=== PATIENT | male | born 1950 | race Caucasian/White ===

== ENCOUNTER 2018-01-19 13:17 | Day surgery (SDC) | payer MEDICAID, MEDICARE ==
[2018-01-19] MEDS ORDERED: PROPOFOL 20 ML ×2 (16:03)
[2018-01-19] MEDS ORDERED: MIDAZOLAM 1 MG/ML 2 ML INJ ×2 (16:03)
[2018-01-19] MEDS ORDERED: FENTAnyl 50 MCG/ML VIAL ×2 (16:04)
[2018-01-19] MEDS ORDERED: LABETALOL HCL 20MG INJ ×2 (16:18)
[2018-01-19] MEDS ORDERED: ESMOLOL 0 ML ×2 (16:21)
== END 2018-01-19 17:10 | disposition home or self-care (01) ==
LOC: GIL 13:17
DX: R19.4 Change in bowel habit (principal); K29.60 Other gastritis without bleeding; K64.8 Other hemorrhoids; E11.9 Type 2 diabetes mellitus without complications; I10 Essential (primary) hypertension; I48.91 Unspecified atrial fibrillation; E78.5 Hyperlipidemia, unspecified; Z79.84 Long term (current) use of oral hypoglycemic drugs
CPT/HCPCS: 43239; 82962

== ENCOUNTER 2018-02-21 12:28 | Inpatient (IN) | payer MEDICARE, MEDICAID ==
[2018-02-21] MEDS: FAMOTIDINE 20 MG INJ IV (14:52)
[2018-02-21 15:02] LABS: ADD UMIC YES; UR ASCORBIC ACID NEGATIVE (NEGATIVE); UR BILIRUBIN (Dip) NEGATIVE (NEGATIVE); UR BLOOD (Dip) NEGATIVE (NEGATIVE); UR CLARITY CLEAR (CLEAR); UR COLOR STRAW (YELLOW); UR GLUCOSE (Dip) 2+ mg/dL (NEGATIVE); UR KETONES (Dip) NEGATIVE (NEGATIVE); UR LEUKOCYTE ESTERASE (Dip) NEGATIVE Leu/ul (NEGATIVE); UR NITRITE (Dip) NEGATIVE (NEGATIVE); UR RBC 0 /HPF (0-5); UR SPECIFIC GRAVITY (Dip) 1.009 (1.003-1.030); UR TOTAL PROTEIN (Dip) 2+ mg/dl (NEGATIVE); UR UROBILINOGEN (Dip) NEGATIVE (NEGATIVE); UR WBC 0 /HPF (0-5)
[2018-02-21 15:11] LABS: ADD MAN DIFF? NO
[2018-02-21 15:12] LABS: BASOPHILS % 0.5 % (0.0-2.0); EOSINOPHILS # 0.3 10^3/ul (0.0-0.5); EOSINOPHILS % 3.9 % (0.0-7.0); HEMATOCRIT 44.7 % (42.0-52.0); HEMOGLOBIN 15.5 g/dl (14.0-18.0); LYMPHOCYTES % 35.6 % (15.0-51.0); MEAN CORPUSCULAR HGB CONC 34.7 g/dl (32.0-37.0); MEAN CORPUSCULAR VOLUME 83.7 fl (82.0-101.0); MONOCYTE # 0.6 10^3/ul (0.3-0.9); MONOCYTES % 6.5 % (0.0-11.0); NEUTROPHIL # 4.5 10^3/ul (1.6-7.5); NEUTROPHILS % 53.3 % (39.0-77.0); PLATELET COUNT 256 10^3/UL (140-415); RED BLOOD COUNT 5.34 10^6/ul (4.70-6.10); RED CELL DISTRIBUTION WIDTH 13.4 % (11.5-14.5)
[2018-02-21 15:12] LABS: WHITE BLOOD COUNT 8.5 10^3/ul (4.8-10.8)
[2018-02-21 15:31] LABS: ALANINE AMINOTRANSFERASE 42 IU/L (13-69); ALBUMIN 4.1 g/dl (3.3-4.9); ALBUMIN/GLOBULIN RATIO 1.36; ALKALINE PHOSPHATASE 91 IU/L (42-121); ANION GAP 18 (8-16); ASPARTATE AMINO TRANSFERASE 33 IU/L (15-46); BILIRUBIN,INDIRECT 0.4 mg/dl (0-1.1); BILIRUBIN,TOTAL 0.4 mg/dl (0.2-1.3); BLOOD UREA NITROGEN 13 mg/dl (7-20); CALCIUM 9.2 mg/dl (8.4-10.2); CARBON DIOXIDE 23 mmol/L (21-31); CHLORIDE 107 mmol/L (97-110); CREATININE 0.79 mg/dl (0.61-1.24); GLUCOSE 199 mg/dl (70-220); LIPASE 106 U/L (23-300); POTASSIUM 3.9 mmol/L (3.5-5.1); SODIUM 144 mmol/L (135-144); TOTAL PROTEIN 7.1 g/dl (6.1-8.1)
[2018-02-21 15:42] LABS: TROPONIN-I 0.029 ng/ml (0.000-0.120)
[2018-02-21] MEDS: SOD CHLORIDE 0.9% 100 ML (16:37)
[2018-02-21] MEDS: IODIXANOL LOCM 100 ML BTL (16:38)
[2018-02-21] MEDS: HEPARIN 25000 UNITS/250 ML 250 ML IV (17:42)
[2018-02-21] MEDS: ASPIRIN 325 MG TAB PO (17:43)
[2018-02-21] MEDS: NITROGLYCERIN 2% 1 GM OINT PKT TD (17:54)
[2018-02-21] MEDS ORDERED: ACETAMINOPHEN 325 MG TAB PO ×2 (18:00→19:00)
[2018-02-21] MEDS ORDERED: NITROGLYCERIN (SL) 0.4 MG TAB SL (18:00)
[2018-02-21] MEDS ORDERED: LORAZEPAM 0.5 MG TAB PO (18:00)
[2018-02-21] MEDS ORDERED: ONDANSETRON 4 MG INJ IV ×2 (18:00→19:00)
[2018-02-21] MEDS ORDERED: morphine LIQ (10 MG/5 ML) CUP PO (18:00)
[2018-02-21] MEDS ORDERED: DOCUSATE SODIUM 100 MG CAP PO (18:00)
[2018-02-21] MEDS ORDERED: MAGNESIUM HYDROXIDE 30ML CUP PO (18:00)
[2018-02-21] MEDS ORDERED: METOPROLOL 5 MG INJ IV (18:00)
[2018-02-21] MEDS ORDERED: NACL 0.9% 3 ML SYG IV (18:00)
[2018-02-21 18:21] LABS: INR 0.97; PARTIAL THROMBOPLASTIN TIME 28.6 Sec (25.0-35.0)
[2018-02-21] MEDS: OMEGA 3 ACID ETHYL ESTERS XX (18:30)
[2018-02-21] MEDS: [UNRECOGNIZED DRUG - OTHER] XX (18:30)
[2018-02-21] MEDS: NICARDipine HCL 30 MG CAPSULE PO (18:34)
[2018-02-21] MEDS: hydrALAzine 20 MG INJ IV (18:35)
[2018-02-21] MEDS: HYPOGLYCEMIA PROTOCOL when Glucose is <70 mg/dL or symptomatic <90 mg/dL. XX (19:00)
[2018-02-21] MEDS ORDERED: GLUCOSE GEL 15 GRAM TUBE PO ×2 (19:00)
[2018-02-21] MEDS ORDERED: GLUCOSE GEL 15 GRAM TUBE BUCCAL (19:00)
[2018-02-21] MEDS ORDERED: GLUCAGON 1 MG INJ IM (19:00)
[2018-02-21] MEDS: Discontinue current oral sulfonylureas (glyburide, glipizide, and/or glimepiride) prior to XX (19:00)
[2018-02-21] MEDS ORDERED: DEXTROSE 50% 50 ML SYRINGE IV ×2 (19:00)
[2018-02-21 20:06] LABS: B-TYPE NATRIURETIC PEPTIDE 2600 PG/ML (0-125); HEMOGLOBIN A1C 7.4 % (0-5.9)
[2018-02-21] MEDS ORDERED: RANITIDINE 150 MG TAB PO (21:00)
[2018-02-21] MEDS ORDERED: METOPROLOL 25 MG TAB PO (21:00)
[2018-02-21] MEDS: INSULIN ASPART [NOVOLOG] 3 ML PEN SC (21:00)
[2018-02-21] MEDS ORDERED: HEPARIN 1000 UNITS/ML 10 ML INJ IV (21:30)
[2018-02-21] MEDS: FISH OIL 1,000 MG CAP PO (22:32)
[2018-02-21] MEDS: METOPROLOL 50 MG TAB PO (22:33)
[2018-02-21] MEDS: PANTOPRAZOLE (EC) 40 MG TAB PO (22:44)
[2018-02-21] MEDS: HEPARIN 25000 UNITS/D5W 250 ML IV (22:51)
[2018-02-22] MEDS: HEPARIN 1000 UNITS/ML 10 ML INJ IV (00:48)
[2018-02-22] MEDS: HEPARIN 25000 UNITS/D5W 250 ML IV ×3 (00:50→13:11)
[2018-02-22] MEDS: [UNRECOGNIZED DRUG - OTHER] XX ×3 (02:30→17:24)
[2018-02-22] MEDS: OMEGA 3 ACID ETHYL ESTERS XX ×3 (02:30→17:24)
[2018-02-22] MEDS: PANTOPRAZOLE (EC) 40 MG TAB PO ×2 (07:10→17:45)
[2018-02-22 07:38] LABS: ADD MAN DIFF? NO
[2018-02-22 07:45] LABS: WHITE BLOOD COUNT 11.8 10^3/ul (4.8-10.8)
[2018-02-22 07:45] LABS: BASOPHIL # 0.1 10^3/ul (0.0-0.1); BASOPHILS % 0.4 % (0.0-2.0); EOSINOPHILS # 0.5 10^3/ul (0.0-0.5); EOSINOPHILS % 4.1 % (0.0-7.0); HEMATOCRIT 45.4 % (42.0-52.0); HEMOGLOBIN 15.9 g/dl (14.0-18.0); LYMPHOCYTES # 4.4 10^3/ul (0.8-2.9); LYMPHOCYTES % 36.9 % (15.0-51.0); MEAN CORPUSCULAR VOLUME 82.7 fl (82.0-101.0); MEAN PLATELET VOLUME 11.8 fl (7.4-10.4); MONOCYTE # 0.9 10^3/ul (0.3-0.9); MONOCYTES % 7.5 % (0.0-11.0); NEUTROPHILS % 50.7 % (39.0-77.0); PLATELET COUNT 271 10^3/UL (140-415); RED BLOOD COUNT 5.49 10^6/ul (4.70-6.10); RED CELL DISTRIBUTION WIDTH 13.5 % (11.5-14.5)
[2018-02-22] MEDS: INSULIN ASPART [NOVOLOG] 3 ML PEN SC ×4 (07:58→22:19)
[2018-02-22] MEDS: LOSARTAN 50 MG TAB PO (08:03)
[2018-02-22] MEDS: FISH OIL 1,000 MG CAP PO ×2 (08:03→22:21)
[2018-02-22] MEDS: CALCIUM/VITAMIN D (250/125) TAB PO ×2 (08:04→22:21)
[2018-02-22] MEDS: METOPROLOL 50 MG TAB PO (08:04)
[2018-02-22 08:11] LABS: ALANINE AMINOTRANSFERASE 38 IU/L (13-69); ALBUMIN 3.9 g/dl (3.3-4.9); ALKALINE PHOSPHATASE 91 IU/L (42-121); ANION GAP 16 (8-16); ASPARTATE AMINO TRANSFERASE 29 IU/L (15-46); BILIRUBIN,INDIRECT 0.8 mg/dl (0-1.1); BILIRUBIN,TOTAL 0.8 mg/dl (0.2-1.3); BLOOD UREA NITROGEN 14 mg/dl (7-20); CALCIUM 9.5 mg/dl (8.4-10.2); CARBON DIOXIDE 23 mmol/L (21-31); CHLORIDE 111 mmol/L (97-110); CREATININE 0.84 mg/dl (0.61-1.24); GLUCOSE 162 mg/dl (70-220); POTASSIUM 3.6 mmol/L (3.5-5.1); SODIUM 146 mmol/L (135-144); TOTAL PROTEIN 6.9 g/dl (6.1-8.1)
[2018-02-22 08:23] LABS: DIGOXIN < 0.4 ng/ml (1.0-2.0)
[2018-02-22 08:25] LABS: FREE T4 (FREE THYROXINE) 1.38 ng/dl (0.78-2.44)
[2018-02-22 08:51] LABS: CHOL/HDL RATIO 4.1 RATIO; CHOLESTEROL 169 mg/dl (100-200); HDL CHOLESTEROL 41 mg/dl (30-78); LDL CHOLESTEROL,CALCULATED 97 mg/dl; TRIGLYCERIDES 157 mg/dl (0-149)
[2018-02-22 08:51] LABS: MAGNESIUM 1.4 mg/dl (1.7-2.5)
[2018-02-22] MEDS ORDERED: LABETALOL HCL 20MG INJ IV (14:00)
[2018-02-22] MEDS: SUCRALFATE (100 MG/ML) 10ML CUP PO ×3 (14:24→22:20)
[2018-02-22] MEDS: MAGNESIUM OXIDE 400 MG TAB PO (14:24)
[2018-02-22 15:09] LABS: PARTIAL THROMBOPLASTIN TIME 60.4 Sec (25.0-35.0)
[2018-02-22] MEDS: SPIRONOLACTONE 25 MG TAB PO (19:05)
[2018-02-22] MEDS: FUROSEMIDE 20 MG INJ IV (19:05)
[2018-02-22 22:59] LABS: PARTIAL THROMBOPLASTIN TIME 53.7 Sec (25.0-35.0)
[2018-02-23] MEDS: [UNRECOGNIZED DRUG - OTHER] XX ×2 (02:30→10:30)
[2018-02-23] MEDS: OMEGA 3 ACID ETHYL ESTERS XX ×2 (02:30→10:30)
[2018-02-23] MEDS: PANTOPRAZOLE (EC) 40 MG TAB PO ×2 (06:50→17:36)
[2018-02-23 06:53] LABS: ADD MAN DIFF? NO
[2018-02-23 07:03] LABS: WHITE BLOOD COUNT 10.6 10^3/ul (4.8-10.8)
[2018-02-23 07:03] LABS: BASOPHILS % 0.4 % (0.0-2.0); EOSINOPHILS # 0.4 10^3/ul (0.0-0.5); EOSINOPHILS % 3.8 % (0.0-7.0); HEMATOCRIT 43.3 % (42.0-52.0); HEMOGLOBIN 15.2 g/dl (14.0-18.0); LYMPHOCYTES # 3.9 10^3/ul (0.8-2.9); LYMPHOCYTES % 36.6 % (15.0-51.0); MEAN CORPUSCULAR HEMOGLOBIN 29.3 pg (29.0-33.0); MEAN CORPUSCULAR HGB CONC 35.1 g/dl (32.0-37.0); MEAN CORPUSCULAR VOLUME 83.4 fl (82.0-101.0); MEAN PLATELET VOLUME 11.3 fl (7.4-10.4); MONOCYTE # 0.9 10^3/ul (0.3-0.9); MONOCYTES % 8.5 % (0.0-11.0); NEUTROPHIL # 5.3 10^3/ul (1.6-7.5); NEUTROPHILS % 50.3 % (39.0-77.0); PLATELET COUNT 269 10^3/UL (140-415); RED BLOOD COUNT 5.19 10^6/ul (4.70-6.10); RED CELL DISTRIBUTION WIDTH 13.3 % (11.5-14.5)
[2018-02-23 07:30] LABS: ALANINE AMINOTRANSFERASE 29 IU/L (13-69); ALBUMIN 3.4 g/dl (3.3-4.9); ALBUMIN/GLOBULIN RATIO 1.21; ALKALINE PHOSPHATASE 74 IU/L (42-121); ANION GAP 12 (8-16); ASPARTATE AMINO TRANSFERASE 17 IU/L (15-46); BILIRUBIN,INDIRECT 0.6 mg/dl (0-1.1); BILIRUBIN,TOTAL 0.6 mg/dl (0.2-1.3); BLOOD UREA NITROGEN 21 mg/dl (7-20); CALCIUM 9.1 mg/dl (8.4-10.2); CARBON DIOXIDE 26 mmol/L (21-31); CHLORIDE 108 mmol/L (97-110); CREATININE 1.07 mg/dl (0.61-1.24); GLUCOSE 182 mg/dl (70-220); POTASSIUM 3.4 mmol/L (3.5-5.1); SODIUM 143 mmol/L (135-144); TOTAL PROTEIN 6.2 g/dl (6.1-8.1)
[2018-02-23 07:31] LABS: B-TYPE NATRIURETIC PEPTIDE 2270 PG/ML (0-125)
[2018-02-23] MEDS: INSULIN ASPART [NOVOLOG] 3 ML PEN SC ×4 (07:51→20:22)
[2018-02-23 07:55] LABS: PARTIAL THROMBOPLASTIN TIME 73.3 Sec (25.0-35.0)
[2018-02-23 08:12] LABS: PHOSPHORUS 4.2 mg/dl (2.5-4.9)
[2018-02-23 08:12] LABS: MAGNESIUM 1.4 mg/dl (1.7-2.5)
[2018-02-23] MEDS: SUCRALFATE (100 MG/ML) 10ML CUP PO ×4 (08:52→20:19)
[2018-02-23] MEDS: CALCIUM/VITAMIN D (250/125) TAB PO ×2 (08:53→20:19)
[2018-02-23] MEDS: LOSARTAN 50 MG TAB PO (08:53)
[2018-02-23] MEDS: FISH OIL 1,000 MG CAP PO ×2 (08:53→20:19)
[2018-02-23] MEDS: SPIRONOLACTONE 25 MG TAB PO (08:54)
[2018-02-23] MEDS: FUROSEMIDE 20 MG INJ IV (08:55)
[2018-02-23] MEDS: HEPARIN 25000 UNITS/D5W 250 ML IV (10:13)
[2018-02-23] MEDS: POTASSIUM CHLORIDE (SR) 20 MEQ TAB PO (10:13)
[2018-02-23] MEDS: MAGNESIUM OXIDE 400 MG TAB PO (10:13)
[2018-02-23 16:35] LABS: PARTIAL THROMBOPLASTIN TIME 65.8 Sec (25.0-35.0)
[2018-02-23 23:50] LABS: PARTIAL THROMBOPLASTIN TIME 68.9 Sec (25.0-35.0)
[2018-02-24] MEDS: HEPARIN 25000 UNITS/D5W 250 ML IV (04:04)
[2018-02-24] MEDS: PANTOPRAZOLE (EC) 40 MG TAB PO ×2 (06:00→17:28)
[2018-02-24 06:55] LABS: ADD MAN DIFF? NO
[2018-02-24 06:57] LABS: BASOPHILS % 0.4 % (0.0-2.0); EOSINOPHILS # 0.4 10^3/ul (0.0-0.5); EOSINOPHILS % 4.5 % (0.0-7.0); HEMATOCRIT 43.6 % (42.0-52.0); HEMOGLOBIN 15.1 g/dl (14.0-18.0); LYMPHOCYTES # 3.6 10^3/ul (0.8-2.9); LYMPHOCYTES % 38.7 % (15.0-51.0); MEAN CORPUSCULAR HEMOGLOBIN 28.8 pg (29.0-33.0); MEAN CORPUSCULAR HGB CONC 34.6 g/dl (32.0-37.0); MEAN CORPUSCULAR VOLUME 83.2 fl (82.0-101.0); MEAN PLATELET VOLUME 10.9 fl (7.4-10.4); MONOCYTE # 0.8 10^3/ul (0.3-0.9); MONOCYTES % 8.8 % (0.0-11.0); NEUTROPHIL # 4.4 10^3/ul (1.6-7.5); NEUTROPHILS % 47.3 % (39.0-77.0); PLATELET COUNT 270 10^3/UL (140-415); RED BLOOD COUNT 5.24 10^6/ul (4.70-6.10); RED CELL DISTRIBUTION WIDTH 13.3 % (11.5-14.5)
[2018-02-24 06:57] LABS: WHITE BLOOD COUNT 9.3 10^3/ul (4.8-10.8)
[2018-02-24 07:22] LABS: ANION GAP 14 (8-16); BLOOD UREA NITROGEN 25 mg/dl (7-20); CARBON DIOXIDE 23 mmol/L (21-31); CHLORIDE 108 mmol/L (97-110); CREATININE 1.12 mg/dl (0.61-1.24); GLUCOSE 206 mg/dl (70-220); MAGNESIUM 1.4 mg/dl (1.7-2.5); PHOSPHORUS 4.1 mg/dl (2.5-4.9); POTASSIUM 3.8 mmol/L (3.5-5.1); SODIUM 141 mmol/L (135-144)
[2018-02-24 07:32] LABS: B-TYPE NATRIURETIC PEPTIDE 1180 PG/ML (0-125)
[2018-02-24 07:33] LABS: PARTIAL THROMBOPLASTIN TIME 59.1 Sec (25.0-35.0)
[2018-02-24] MEDS: INSULIN ASPART [NOVOLOG] 3 ML PEN SC ×4 (08:19→20:39)
[2018-02-24] MEDS: SUCRALFATE (100 MG/ML) 10ML CUP PO ×4 (09:47→20:25)
[2018-02-24] MEDS: MAGNESIUM SULFATE 3 GM in DEXTROSE 5% 100 ML IVPB (09:47)
[2018-02-24] MEDS: SPIRONOLACTONE 25 MG TAB PO (09:47)
[2018-02-24] MEDS: FISH OIL 1,000 MG CAP PO ×2 (09:47→20:28)
[2018-02-24] MEDS: APIXABAN 5 MG TABLET PO ×2 (09:48→20:28)
[2018-02-24] MEDS: FUROSEMIDE 20 MG INJ IV (09:49)
[2018-02-24] MEDS: LOSARTAN 50 MG TAB PO (09:50)
[2018-02-24] MEDS: CALCIUM/VITAMIN D (250/125) TAB PO ×2 (12:23→20:28)
[2018-02-25] MEDS: PANTOPRAZOLE (EC) 40 MG TAB PO ×2 (05:39→17:18)
[2018-02-25 05:50] LABS: ADD MAN DIFF? NO
[2018-02-25 05:53] LABS: WHITE BLOOD COUNT 8.1 10^3/ul (4.8-10.8)
[2018-02-25 05:53] LABS: BASOPHILS % 0.5 % (0.0-2.0); EOSINOPHILS # 0.4 10^3/ul (0.0-0.5); EOSINOPHILS % 5.2 % (0.0-7.0); HEMATOCRIT 41.7 % (42.0-52.0); HEMOGLOBIN 14.7 g/dl (14.0-18.0); LYMPHOCYTES # 3.1 10^3/ul (0.8-2.9); LYMPHOCYTES % 38.5 % (15.0-51.0); MEAN CORPUSCULAR HEMOGLOBIN 29.1 pg (29.0-33.0); MEAN CORPUSCULAR HGB CONC 35.3 g/dl (32.0-37.0); MEAN CORPUSCULAR VOLUME 82.4 fl (82.0-101.0); MEAN PLATELET VOLUME 11.3 fl (7.4-10.4); MONOCYTE # 0.7 10^3/ul (0.3-0.9); MONOCYTES % 8.3 % (0.0-11.0); NEUTROPHIL # 3.8 10^3/ul (1.6-7.5); NEUTROPHILS % 47.1 % (39.0-77.0); PLATELET COUNT 259 10^3/UL (140-415); RED BLOOD COUNT 5.06 10^6/ul (4.70-6.10); RED CELL DISTRIBUTION WIDTH 13.6 % (11.5-14.5)
[2018-02-25 06:11] LABS: PARTIAL THROMBOPLASTIN TIME 31.2 Sec (25.0-35.0)
[2018-02-25 06:22] LABS: DIGOXIN < 0.4 ng/ml (1.0-2.0)
[2018-02-25 06:30] LABS: ALANINE AMINOTRANSFERASE 33 IU/L (13-69); ALBUMIN 3.3 g/dl (3.3-4.9); ALBUMIN/GLOBULIN RATIO 1.17; ALKALINE PHOSPHATASE 70 IU/L (42-121); ANION GAP 14 (8-16); ASPARTATE AMINO TRANSFERASE 27 IU/L (15-46); BILIRUBIN,INDIRECT 0.6 mg/dl (0-1.1); BILIRUBIN,TOTAL 0.6 mg/dl (0.2-1.3); BLOOD UREA NITROGEN 23 mg/dl (7-20); CALCIUM 9.3 mg/dl (8.4-10.2); CARBON DIOXIDE 22 mmol/L (21-31); CHLORIDE 109 mmol/L (97-110); CREATININE 1.04 mg/dl (0.61-1.24); GLUCOSE 203 mg/dl (70-220); MAGNESIUM 1.6 mg/dl (1.7-2.5); POTASSIUM 3.8 mmol/L (3.5-5.1); SODIUM 141 mmol/L (135-144); TOTAL PROTEIN 6.1 g/dl (6.1-8.1)
[2018-02-25] MEDS: APIXABAN 5 MG TABLET PO ×2 (08:11→20:14)
[2018-02-25] MEDS: SUCRALFATE (100 MG/ML) 10ML CUP PO ×4 (08:11→20:13)
[2018-02-25] MEDS: FISH OIL 1,000 MG CAP PO ×2 (08:12→20:14)
[2018-02-25] MEDS: LOSARTAN 50 MG TAB PO (08:12)
[2018-02-25] MEDS: SPIRONOLACTONE 25 MG TAB PO (08:12)
[2018-02-25] MEDS: CALCIUM/VITAMIN D (250/125) TAB PO ×2 (08:12→20:13)
[2018-02-25] MEDS: FUROSEMIDE 20 MG INJ IV (08:13)
[2018-02-25] MEDS: INSULIN ASPART [NOVOLOG] 3 ML PEN SC ×4 (08:15→20:21)
[2018-02-25] MEDS: metFORMIN 850 MG TAB PO ×2 (09:35→17:18)
[2018-02-25] MEDS: MAGNESIUM SULFATE 2 GM/50 ML 50 ML IVPB (09:35)
[2018-02-25] MEDS: GLIMEPIRIDE 2 MG TAB PO (17:21)
[2018-02-26] MEDS: PANTOPRAZOLE (EC) 40 MG TAB PO (05:34)
[2018-02-26 06:04] LABS: ADD MAN DIFF? NO
[2018-02-26 06:19] LABS: WHITE BLOOD COUNT 9.3 10^3/ul (4.8-10.8)
[2018-02-26 06:19] LABS: BASOPHILS % 0.3 % (0.0-2.0); EOSINOPHILS # 0.4 10^3/ul (0.0-0.5); EOSINOPHILS % 4.7 % (0.0-7.0); HEMATOCRIT 43.8 % (42.0-52.0); HEMOGLOBIN 15.3 g/dl (14.0-18.0); LYMPHOCYTES # 3.3 10^3/ul (0.8-2.9); MEAN CORPUSCULAR HEMOGLOBIN 28.9 pg (29.0-33.0); MEAN CORPUSCULAR HGB CONC 34.9 g/dl (32.0-37.0); MEAN CORPUSCULAR VOLUME 82.8 fl (82.0-101.0); MEAN PLATELET VOLUME 11.4 fl (7.4-10.4); MONOCYTE # 0.6 10^3/ul (0.3-0.9); MONOCYTES % 6.9 % (0.0-11.0); NEUTROPHIL # 4.8 10^3/ul (1.6-7.5); NEUTROPHILS % 51.7 % (39.0-77.0); PLATELET COUNT 263 10^3/UL (140-415); RED BLOOD COUNT 5.29 10^6/ul (4.70-6.10); RED CELL DISTRIBUTION WIDTH 13.5 % (11.5-14.5)
[2018-02-26 06:46] LABS: ANION GAP 16 (8-16); BLOOD UREA NITROGEN 25 mg/dl (7-20); CALCIUM 9.5 mg/dl (8.4-10.2); CARBON DIOXIDE 22 mmol/L (21-31); CHLORIDE 107 mmol/L (97-110); CREATININE 1.07 mg/dl (0.61-1.24); GLUCOSE 191 mg/dl (70-220); MAGNESIUM 1.7 mg/dl (1.7-2.5); PHOSPHORUS 4.7 mg/dl (2.5-4.9); POTASSIUM 3.7 mmol/L (3.5-5.1); SODIUM 141 mmol/L (135-144)
[2018-02-26] MEDS: INSULIN ASPART [NOVOLOG] 3 ML PEN SC (08:03)
[2018-02-26] MEDS: metFORMIN 850 MG TAB PO (08:32)
[2018-02-26] MEDS: GLIMEPIRIDE 2 MG TAB PO (08:32)
[2018-02-26] MEDS: FISH OIL 1,000 MG CAP PO (08:32)
[2018-02-26] MEDS: APIXABAN 5 MG TABLET PO (08:33)
[2018-02-26] MEDS: CALCIUM/VITAMIN D (250/125) TAB PO (08:33)
[2018-02-26] MEDS: LOSARTAN 50 MG TAB PO (08:33)
[2018-02-26] MEDS: SUCRALFATE (100 MG/ML) 10ML CUP PO (08:34)
[2018-02-26] MEDS: SPIRONOLACTONE 25 MG TAB PO (08:34)
[2018-02-26] MEDS: FUROSEMIDE 20 MG INJ IV (08:35)
[2018-02-26] MEDS: FUROSEMIDE 40 MG TAB PO (09:30)
[2018-02-26 11:02] LABS: OCCULT BLOOD STOOL NEGATIVE (NEGATIVE)
== END 2018-02-26 11:30 | disposition home or self-care (01) | DRG 383 ==
LOC: MS4 02-23 22:39 → TEL 02-23 22:48 → MS2 02-24 08:58 → E/R 12:28 → TEL 18:05
DX: K25.9 Gastric ulcer, unspecified as acute or chronic, without hemorrhage or perforation (principal); I50.43 Acute on chronic combined systolic (congestive) and diastolic (congestive) heart failure; I48.91 Unspecified atrial fibrillation; I11.0 Hypertensive heart disease with heart failure; I51.3 Intracardiac thrombosis, not elsewhere classified; K29.70 Gastritis, unspecified, without bleeding; E11.9 Type 2 diabetes mellitus without complications; E78.5 Hyperlipidemia, unspecified; Z79.02 Long term (current) use of antithrombotics/antiplatelets; Z79.4 Long term (current) use of insulin
CPT/HCPCS: 36415; 71045; 74177; 80048; 80053; 80061; 80162; 81001; 82270; 82962; 83036; 83690; 83735; 83880; 84100; 84439; 84443; 84484; 85025; 85610; 85730; 93005; 93306; 96374; 96375; 99291-25